=== PATIENT | female | born 1970 | race Caucasian/White ===

== ENCOUNTER 2022-12-25 12:03 | Emergency (ER) | payer OTHER, SELFPAY ==
[2022-12-25 12:33] VITALS: BP 171/97; PULSE 105; RESP 16; TEMP 36.4; O2SAT 95
[2022-12-25] MEDS: TRIAMCINOLONE ACET INJ 40 MG/ML VIAL IM (12:59)
--- NOTE | 2022-12-25 12:59 | ED.GENADULT ---
HPI - General Adult General Chief complaint: Skin/Abscess/Foreign Body Stated complaint: poison sera on face Time Seen by Provider: 12/25/22 12:45 History of Present Illness HPI narrative: 52-year-old female presented to the emergency department for evaluation after having a poison sera exposure. Patient reports on Tuesday she had been out fishing and playing with what she thought was a maple tree. Patient states she even brought the tree home. Patient states on that evening she began having increased itching and has since had a rash develop over the right side of her face. After getting the plant home she did identified it as poison sera. Patient denies any chest pain or shortness of breath. Related Data Allergies Allergy/AdvReac Type Severity Reaction Status Date / Time Sulfa (Sulfonamide Allergy Unknown Verified 06/04/13 13:14 Antibiotics) tramadol Allergy HIVES, Verified 06/04/13 13:14 ITCHING Review of Systems Review of Systems: All systems reviewed & are unremarkable except as noted in HPI and below Exam Narrative: APPEARANCE: Well appearing, no pain, no distress, well-nourished. HEAD: normocephalic, atraumatic. EYES: PERRLA/EOMI, conjunctivae clear. NOSE: Normal no drainage NECK: Supple. No adenopathy, no masses. RESPIRATORY: Airway patent, respirations nonlabored. Clear to auscultation bilaterally, no rales, rhonchi, wheezing. CARDIOVASCULAR: Regular rate and rhythm without murmurs rubs or gallops. ABDOMINAL: Soft, nontender, nondistended, normal bowel sounds MUSCULOSKELETAL: Moves all extremities. Strength/ROM intact, No edema, No calf tenderness. NEURO: Alert. Cranial nerves II through XII intact. Grossly intact SKIN: Dermatitis rash on face bilaterally and involving the right ear. Course Course Emergency Course: 52-year-old female presented the ED for evaluation of facial rash secondary to poison sera. Patient was treated with 40 mg of Kenalog 40. Patient was encouraged of close follow-up with her primary care physician. Patient was also educated on treatment for home. All question concerns were addressed. Patient was educated on reasons to return to the emergency department. Vital Signs Vital signs: Vital Signs Temperature 97.6 F 12/25/22 12:33 Pulse Rate 105 H 12/25/22 12:33 Respiratory Rate 16 12/25/22 12:33 Blood Pressure 171/97 H 12/25/22 12:33 Pulse Oximetry 95 12/25/22 12:33 Oxygen Delivery Room Air 12/25/22 12:33 Temperature 97.6 F 12/25/22 12:33 Pulse Rate 105 H 12/25/22 12:33 Respiratory Rate 16 12/25/22 12:33 Blood Pressure 171/97 H 12/25/22 12:33 Pulse Oximetry 95 12/25/22 12:33 Oxygen Delivery Room Air 12/25/22 12:33 Medical Decision Making Differential Diagnosis Differential Diagnosis: Dermatitis, poison esra, poison sumac, cellulitis. Vital Signs Vital Signs: Vital Signs Temperature 97.6 F 12/25/22 12:33 Pulse Rate 105 H 12/25/22 12:33 Respiratory Rate 16 12/25/22 12:33 Blood Pressure 171/97 H 12/25/22 12:33 Pulse Oximetry 95 12/25/22 12:33 Oxygen Delivery Room Air 12/25/22 12:33 Temperature 97.6 F 12/25/22 12:33 Pulse Rate 105 H 12/25/22 12:33 Respiratory Rate 16 12/25/22 12:33 Blood Pressure 171/97 H 12/25/22 12:33 Pulse Oximetry 95 12/25/22 12:33 Oxygen Delivery Room Air 12/25/22 12:33 Discharge Plan Discharge Clinical Impression: Contact dermatitis Patient Disposition: Home, Self-Care Condition: Stable Instructions: Antibiotic Form, Poison Sera (ED) Additional Instructions: Benadryl as needed for itching. Wound care as directed. Have close follow-up with your primary care physician. If you have a resurgence of the rash over the next 5 to 7 days you may need additional treatment. Follow-up/Referrals: PHYSICIAN,SITE ACQUISITION MANAGER [Primary Care Provider] -
== END 2022-12-25 13:10 | disposition home or self-care (01) ==
PROVIDERS: Emergency Provider Emergency Medicine
DX: L23.7 Allergic contact dermatitis due to plants, except food (principal)
CPT/HCPCS: 96372; 99283; J3301

== ENCOUNTER 2023-09-09 11:53 | Emergency (ER) | payer OTHER, SELFPAY ==
[2023-09-09 12:38] VITALS: BP 169/98; PULSE 100; RESP 16; TEMP 36.7; O2SAT 96
--- NOTE | 2023-09-09 14:43 | ED.GENADULT ---
HPI - General Adult General Chief complaint: Skin/Abscess/Foreign Body Stated complaint: facial swelling Time Seen by Provider: 09/09/23 14:32 History of Present Illness HPI narrative: patient is a 53-year-old female who presents ER with right-sided facial swelling. She has had dental pain for the last couple of days and swelling is associated with it. No drainage in her mouth. No fevers or chills or sweats. No difficulty breathing or swelling. Related Data Allergies Allergy/AdvReac Type Severity Reaction Status Date / Time Sulfa (Sulfonamide Allergy Unknown Verified 06/04/13 13:14 Antibiotics) tramadol Allergy HIVES, Verified 06/04/13 13:14 ITCHING Review of Systems Constitutional: Constitutional: Denies chills, Denies fatigue and Denies fever(s) ENT: Denies dysphagia, Denies nasal congestion and Denies sore throat Comments: +dental pain PMFSH Past Medical History Medical History (Updated 09/09/23 @ 14:46 by Hang Carroll MD) Depression Hypertension Surgical History Surgical History (Updated 09/09/23 @ 14:44 by Hang Carroll MD) History of hysterectomy Exam Narrative: GENERAL: Well-appearing, well-nourished, and in no acute distress. HEAD: Normocephalic, atraumatic. ENT: Mucous membranes moist. dental abscess at tooth number 35. submandibular facial swelling on the right side. NECK: Supple. EXTREMITIES: Normal range of motion. No edema. NEURO: Alert and oriented x3. PSYCH: Normal mood and affect. Course Course Emergency Course: Patient resting comfortably. Abscess drain. Will start antibiotics and oral pain medicine. Vital Signs Vital signs: Vital Signs Temperature 98.0 F 09/09/23 12:38 Pulse Rate 100 09/09/23 12:38 Respiratory Rate 16 09/09/23 12:38 Blood Pressure 169/98 H 09/09/23 12:38 Pulse Oximetry 96 09/09/23 12:38 Oxygen Delivery Room Air 09/09/23 12:38 Temperature 98.0 F 09/09/23 12:38 Pulse Rate 100 09/09/23 12:38 Respiratory Rate 16 09/09/23 12:38 Blood Pressure 169/98 H 09/09/23 12:38 Pulse Oximetry 96 09/09/23 12:38 Oxygen Delivery Room Air 09/09/23 12:38 Procedures Abscess I/D dental: Date of Incision: 09/09/23 Time of Incision: 14:45 Side (if applicable): right Local Anesthetic: other anesthetic ( Cetacaine spray) Technique: incised with #11 blade Packing used?: none I&D Results: Pus Medical Decision Making Vital Signs Vital Signs: Vital Signs Temperature 98.0 F 09/09/23 12:38 Pulse Rate 100 09/09/23 12:38 Respiratory Rate 16 09/09/23 12:38 Blood Pressure 169/98 H 09/09/23 12:38 Pulse Oximetry 96 09/09/23 12:38 Oxygen Delivery Room Air 09/09/23 12:38 Temperature 98.0 F 09/09/23 12:38 Pulse Rate 100 09/09/23 12:38 Respiratory Rate 16 09/09/23 12:38 Blood Pressure 169/98 H 09/09/23 12:38 Pulse Oximetry 96 09/09/23 12:38 Oxygen Delivery Room Air 09/09/23 12:38 Discharge Plan Discharge Clinical Impression: Abscess, dental Patient Disposition: Home, Self-Care Condition: Stable Instructions: Antibiotic Form, Dental Abscess (ED) Additional Instructions: return to the ER if he cannot breathe, he cannot swallow, you have worsening pain/swelling, or you have additional concerns. Prescriptions: New amoxicillin-pot clavulanate 875-125 mg tablet 1 tablet PO Q12H Qty: 20 0RF hydrocodone-acetaminophen 5-325 mg tablet 1 tablet PO Q6H PRN (Reason: pain) Qty: 20 0RF Follow-up/Referrals: Dental Referral Line [Outside] - 1 Week PHYSICIAN,MILL PLATFORM SUPERVISOR [Primary Care Provider] -
[2023-09-09] MEDS: BENZOCAINE/TETRACAINE SPRAY (*SP) 56 ML AEROSOL 1 SPRAY (14:59)
== END 2023-09-09 15:07 | disposition home or self-care (01) ==
LOC: ANHED 14:51
PROVIDERS: Emergency Provider Emergency Medicine
DX: K04.7 Periapical abscess without sinus (principal); I10 Essential (primary) hypertension; Z90.710 Acquired absence of both cervix and uterus
CPT/HCPCS: 41800; 99283; A9270